=== PATIENT | male | born 1945 | race Hispanic/Latino ===

== ENCOUNTER 2021-02-23 14:36 | Outpatient (CLI) | payer MEDICARE ==
[2021-02-23 16:23] LABS: Anion Gap 14 mmol/L (10-20); BUN (Urea Nitrogen) 14 mg/dL (8.4-25.7); Calc. Creatinine Clearance 0 mL/min (70-130); Carbon Dioxide 26 mmol/L (23-31); Chloride 106 mmol/L (98-107); Glucose 107 mg/dL (83-110); Potassium 4.1 mmol/L (3.5-5.1); Sodium 142 mmol/L (136-145)
[2021-02-23 16:27] LABS: Hemoglobin 13.5 g/dL (13.5-17.5)
== END 2021-02-23 14:37 | disposition home or self-care (01) ==
LOC: LABBT 14:36
PROVIDERS: ATTEND Student in an Organized Health Care Education/Training Program
DX: Z01.818 Encounter for other preprocedural examination (principal); R22.0 Localized swelling, mass and lump, head; J35.1 Hypertrophy of tonsils; R07.0 Pain in throat
CPT/HCPCS: 80048; 85014; 85018

== ENCOUNTER 2021-02-27 06:11 | Observation (INO) | payer MEDICARE ==
[2021-02-27] MEDS ORDERED: Midazolam HCl 2 mg/2 ml Vial ONE (08:08)
[2021-02-27] MEDS ORDERED: EPINEPHrine 1 MG/ML AMP ONE ×3 (08:37→09:34)
[2021-02-27] MEDS ORDERED: Propofol 500 MG/50 ML VIAL ONE ×2 (08:43→08:45)
[2021-02-27] MEDS ORDERED: Fentanyl 100 MCG/2 ML VIAL ONE ×4 (08:44→11:05)
[2021-02-27] MEDS ORDERED: SUGAMMADEX SODIUM 500 MG/5 ML VIAL ONE (08:47)
[2021-02-27] MEDS ORDERED: Ondansetron PF 4 MG/2 ML Vial ONE (08:58)
[2021-02-27] MEDS ORDERED: Rocuronium Bromide 10 MG/ML (10ML VIAL) ONE (08:58)
[2021-02-27] MEDS ORDERED: Lidocaine 1% PF 5 ML VIAL ONE (08:58)
[2021-02-27] MEDS ORDERED: Dexamethasone 20 MG/5 ML VIAL ONE (08:58)
[2021-02-27] MEDS ORDERED: Ketorolac Tromethamine 30 MG/ML VIAL ONE (08:58)
[2021-02-27] MEDS ORDERED: EPINEPHrine 1 MG/10 ML Abboject SYRINGE ONE (09:33)
[2021-02-27] MEDS ORDERED: Ondansetron HCl/PF 4 MG/2 ML Vial IVP PRN (10:13)
[2021-02-27] MEDS ORDERED: Ondansetron PF 4 MG/2 ML Vial IVP PRN (11:14)
[2021-02-27] MEDS ORDERED: HYDROmorphone 2 MG/ML VIAL ONE (11:21)
[2021-02-27 15:41] VITALS: BMI 24.0
[2021-02-27] MEDS: HYDROcodone/Acetaminophen 5/325 mg Tablet PO PRN ×2 (17:29→22:04)
[2021-02-27] MEDS ORDERED: Zolpidem Tartrate 5 MG TAB PO SCH (21:00)
[2021-02-27] MEDS ORDERED: Tamsulosin HCl 0.4 MG CAP PO SCH (21:00)
[2021-02-27] MEDS ORDERED: ALPRAZolam 0.5 MG TAB PO SCH (21:00)
[2021-02-28] MEDS: HYDROcodone/Acetaminophen 5/325 mg Tablet PO PRN ×2 (02:34→08:53)
[2021-02-28 08:22] VITALS: BP 122/64; TEMP 98.1
== END 2021-02-28 11:00 | disposition home or self-care (01) ==
LOC: SDC 06:11 → SURG A 12:59
PROVIDERS: ADMIT Student in an Organized Health Care Education/Training Program; ATTEND Student in an Organized Health Care Education/Training Program
PROC: 0CBS8ZX Excision of Larynx, Via Natural or Artificial Opening Endoscopic, Diagnostic (ICD-10-PCS; principal; 2021-02-27)
DX: C09.9 Malignant neoplasm of tonsil, unspecified (principal); J35.1 Hypertrophy of tonsils; G47.00 Insomnia, unspecified; Z79.899 Other long term (current) drug therapy
CPT/HCPCS: 31536; 88184; 88305; 88341; 88342; G0378 ×2; 88304; J0171; J1100; J1170; J1885; J2250; J2405; J2704; J3010

== ENCOUNTER 2021-03-08 08:04 | Outpatient (CLI) | payer MEDICARE ==
[2021-03-08] MEDS ORDERED: Iopamidol 370 76% 100 ML VIAL ONE (09:24)
== END 2021-03-08 08:05 | disposition home or self-care (01) ==
LOC: CT 08:04
PROVIDERS: ATTEND Student in an Organized Health Care Education/Training Program
DX: C44.92 Squamous cell carcinoma of skin, unspecified (principal); J34.89 Other specified disorders of nose and nasal sinuses; R91.8 Other nonspecific abnormal finding of lung field; J98.4 Other disorders of lung
CPT/HCPCS: 70491; 71260; Q9967

== ENCOUNTER 2021-08-16 11:18 | Outpatient (CLI) | payer MEDICARE | END 2021-08-16 11:19 | disposition home or self-care (01) | LOC: PET 11:18 | PROVIDERS: ATTEND Radiology Radiation Oncology | DX: C09.8 Malignant neoplasm of overlapping sites of tonsil (principal) | CPT/HCPCS: 78815; A9552 ==

== ENCOUNTER 2024-05-30 22:11 | Inpatient (IN) | payer OTHER ==
[2024-05-31] MEDS ORDERED: Ondansetron PF 4 MG/2 ML Vial IVP PRN (01:21)
[2024-05-31] MEDS ORDERED: Ondansetron ODT 4 MG TAB PO PRN (01:21)
[2024-05-31] MEDS: Sodium Chloride 0.9% 1,000 ML IV SCH (02:43)
[2024-05-31] MEDS: Cefepime 2 GM in Sodium Chloride 0.9% 100 ML IVPB SCH (05:32)
[2024-05-31 06:55] LABS: #Basophils Less than 0.03 10x3/uL (0.0-0.2); #Eosinphils Less than 0.03 10x3/uL (0.0-0.7); %Basophils 0.1 % (0.0-1.0); %Lymphocytes 3.5 % (21.0-51.0); %Monocytes 13.9 % (0.0-10.0); %Neutrophils 80.2 % (42.0-75.0); Hematocrit 29.1 % (42.0-52.0); Hemoglobin 9.7 g/dL (14.0-18.0); Mean Corpuscular HGB CONC 33.3 g/dL (32.0-36.0); Mean Corpuscular Hemoglobin 31.6 pg (27.0-31.0); Mean Corpuscular Volume 94.8 fL (78.0-98.0); Platelet Count 102 10x3/uL (130-400); RBC Distribution Width 14.9 % (11.5-14.5); Red Blood Cell (RBC) Count 3.07 mill/uL (4.70-6.10)
[2024-05-31 07:17] LABS: Anion Gap 12 mmol/L (10-20); BUN (Urea Nitrogen) 19 mg/dL (8.4-25.7); Calc. Creatinine Clearance 40 mL/min (70-130); Calcium 8.3 mg/dL (7.8-10.44); Carbon Dioxide 20 mmol/L (23-31); Chloride 110 mmol/L (98-107); Estimated GFR 59; Glucose 104 mg/dL (83-110); Potassium 3.3 mmol/L (3.5-5.1); Sodium 139 mmol/L (136-145)
[2024-05-31] MEDS: Potassium Chloride 20 MEQ in Premix 1 BAG IVPB SCH (09:39)
[2024-05-31] MEDS: Enoxaparin 40 MG (0.4 mL) SYRINGE SC SCH (09:40)
[2024-05-31 12:04] VITALS: BMI 17.1
[2024-05-31] MEDS: Tamsulosin HCl 0.4 MG CAP PO SCH (21:31)
[2024-05-31] MEDS: Zolpidem Tartrate 5 MG TAB PO PRN (21:31)
[2024-05-31] MEDS: Acetaminophen 325 MG TAB PO PRN (21:31)
[2024-06-01 08:03] LABS: #Basophils Less than 0.03 10x3/uL (0.0-0.2); #Eosinphils Less than 0.03 10x3/uL (0.0-0.7); %Lymphocytes 3.6 % (21.0-51.0); %Monocytes 8.6 % (0.0-10.0); %Neutrophils 85.9 % (42.0-75.0); Hematocrit 30.9 % (42.0-52.0); Mean Corpuscular HGB CONC 32.4 g/dL (32.0-36.0); Mean Corpuscular Hemoglobin 31.3 pg (27.0-31.0); Mean Corpuscular Volume 96.6 fL (78.0-98.0); Platelet Count 95 10x3/uL (130-400); RBC Distribution Width 14.8 % (11.5-14.5)
[2024-06-01] MEDS: Dutasteride 0.5 MG CAP PO SCH (08:16)
[2024-06-01 08:19] LABS: Anion Gap 10 mmol/L (10-20); BUN (Urea Nitrogen) 17 mg/dL (8.4-25.7); Calc. Creatinine Clearance 47 mL/min (70-130); Carbon Dioxide 20 mmol/L (23-31); Chloride 112 mmol/L (98-107); Estimated GFR 72; Glucose 83 mg/dL (83-110); Potassium 3.9 mmol/L (3.5-5.1); Sodium 138 mmol/L (136-145)
[2024-06-01] MEDS: Meropenem 2 GM in Sodium Chloride 0.9% 100 ML IVPB SCH (13:23)
[2024-06-02 06:52] LABS: #Basophils Less than 0.03 10x3/uL (0.0-0.2); #Eosinphils Less than 0.03 10x3/uL (0.0-0.7); %Basophils 0.2 % (0.0-1.0); %Lymphocytes 7.8 % (21.0-51.0); %Monocytes 13.2 % (0.0-10.0); %Neutrophils 76.6 % (42.0-75.0); Hemoglobin 9.9 g/dL (14.0-18.0); Mean Corpuscular HGB CONC 31.9 g/dL (32.0-36.0); Mean Corpuscular Hemoglobin 31.5 pg (27.0-31.0); Mean Corpuscular Volume 98.7 fL (78.0-98.0); Mean Platelet Volume 8.9 fL (7.4-10.4); Platelet Count 114 10x3/uL (130-400); RBC Distribution Width 14.6 % (11.5-14.5); Red Blood Cell (RBC) Count 3.14 mill/uL (4.70-6.10)
[2024-06-02 07:56] LABS: Anion Gap 13 mmol/L (10-20); BUN (Urea Nitrogen) 18 mg/dL (8.4-25.7); Calc. Creatinine Clearance 53 mL/min (70-130); Calcium 8.2 mg/dL (7.8-10.44); Carbon Dioxide 20 mmol/L (23-31); Chloride 108 mmol/L (98-107); Estimated GFR 82; Glucose 83 mg/dL (83-110); Potassium 3.4 mmol/L (3.5-5.1); Sodium 138 mmol/L (136-145)
[2024-06-02] MEDS: Potassium Chloride 20 MEQ TAB PO SCH (15:10)
[2024-06-03 05:29] LABS: Anion Gap 10 mmol/L (10-20); BUN (Urea Nitrogen) 19 mg/dL (8.4-25.7); Calc. Creatinine Clearance 46 mL/min (70-130); Calcium 8.1 mg/dL (7.8-10.44); Carbon Dioxide 25 mmol/L (23-31); Chloride 107 mmol/L (98-107); Estimated GFR 70; Glucose 99 mg/dL (83-110); Potassium 3.5 mmol/L (3.5-5.1); Sodium 138 mmol/L (136-145)
[2024-06-03 06:04] LABS: #Basophils Less than 0.03 10x3/uL (0.0-0.2); #Eosinphils Less than 0.03 10x3/uL (0.0-0.7); %Lymphocytes 12.9 % (21.0-51.0); %Monocytes 19.7 % (0.0-10.0); %Neutrophils 64.5 % (42.0-75.0); Hematocrit 31.7 % (42.0-52.0); Hemoglobin 10.2 g/dL (14.0-18.0); Mean Corpuscular HGB CONC 32.2 g/dL (32.0-36.0); Mean Corpuscular Hemoglobin 31.4 pg (27.0-31.0); Mean Corpuscular Volume 97.5 fL (78.0-98.0); Mean Platelet Volume 9.2 fL (7.4-10.4); Platelet Count 122 10x3/uL (130-400); RBC Distribution Width 14.6 % (11.5-14.5); Red Blood Cell (RBC) Count 3.25 mill/uL (4.70-6.10)
[2024-06-04 05:30] VITALS: BMI 16.9
[2024-06-04 06:23] LABS: Hematocrit 31.1 % (42.0-52.0); Hemoglobin 9.9 g/dL (14.0-18.0); Mean Corpuscular HGB CONC 31.8 g/dL (32.0-36.0); Mean Corpuscular Hemoglobin 31.1 pg (27.0-31.0); Mean Corpuscular Volume 97.8 fL (78.0-98.0); Mean Platelet Volume 8.8 fL (7.4-10.4); Platelet Count 115 10x3/uL (130-400); RBC Distribution Width 14.6 % (11.5-14.5); Red Blood Cell (RBC) Count 3.18 mill/uL (4.70-6.10)
[2024-06-04 06:30] LABS: Anion Gap 9 mmol/L (10-20); BUN (Urea Nitrogen) 17 mg/dL (8.4-25.7); Calc. Creatinine Clearance 48 mL/min (70-130); Calcium 8.4 mg/dL (7.8-10.44); Carbon Dioxide 27 mmol/L (23-31); Chloride 107 mmol/L (98-107); Estimated GFR 74; Glucose 92 mg/dL (83-110); Potassium 3.4 mmol/L (3.5-5.1); Sodium 140 mmol/L (136-145)
[2024-06-04 07:29] LABS: Band 3 % (5-11); Lymphocytes 14 % (21-51); Monocytes 14 % (0-10); Neutrophil 66 % (42-75); Platelet Adequacy Comment Platelets Decreased; RBC Morphology Within Normal Limits; Reactive Lymphocytes 3 % (0-10)
[2024-06-04] MEDS: Potassium Chloride 20 MEQ TAB PO SCH (08:57)
[2024-06-04 12:06] LABS: Bacteria/HPF None Seen HPF (None Seen); Bilirubin Negative (Negative); Blood, Urine 1+ (Negative); Clarity Clear (Clear); Glucose, Urine (Dipstick) Normal (Negative); Ketone, Urine 20 mg/dL (Negative); Leukocyte Negative Leu/uL (Negative); Nitrite Negative (Negative); Protein, Urine (Dipstick) 50 mg/dL (Neg-Trace); RBC/HPF 0-3 HPF (0-3); Specific Gravity, Urine 1.018 (1.002-1.036); Squamous Epithelial None Seen HPF (0-3); WBC/HPF 0-3 HPF (0-3); pH, Urine 7.5 (5.0-9.0)
[2024-06-04 13:11] LABS: INR-International Normal Ratio 1.1; Prothrombin Time 14.4 sec (12.0-14.7)
[2024-06-04 13:13] LABS: PTT 49.6 sec (22.9-36.1)
[2024-06-05] MEDS: Zolpidem Tartrate 5 MG TAB PO SCH (23:30)
[2024-06-06] MEDS: Zolpidem Tartrate 5 MG TAB PO PRN (20:19)
[2024-06-07] MEDS: Potassium Chloride 20 MEQ TAB PO SCH (08:31)
[2024-06-07 12:01] VITALS: BP 94/49; TEMP 98.2
== END 2024-06-07 14:46 | disposition home or self-care (01) | DRG 872 ==
LOC: SURG B 23:34
PROVIDERS: ADMIT Student in an Organized Health Care Education/Training Program; ATTEND Internal Medicine
DX: A41.9 Sepsis, unspecified organism (principal); N39.0 Urinary tract infection, site not specified; T83.511A Infection and inflammatory reaction due to indwelling urethral catheter, initial encounter; E44.0 Moderate protein-calorie malnutrition; Z68.1 Body mass index [BMI] 19.9 or less, adult; N45.3 Epididymo-orchitis; N43.3 Hydrocele, unspecified; E87.6 Hypokalemia; N18.9 Chronic kidney disease, unspecified; N40.0 Benign prostatic hyperplasia without lower urinary tract symptoms; F41.9 Anxiety disorder, unspecified; Z98.890 Other specified postprocedural states; Z79.899 Other long term (current) drug therapy; G47.00 Insomnia, unspecified
CPT/HCPCS: 36415; 51702; 71046; 74177; 76870; 80048; 80053; 81001; 83605; 83690; 83735; 84145; 85025; 85610; 85730; 87040; 87077; 87081; 87086; 87149; 87186; 93976; 96374; 96375; J0692; J1650; J2183; J3370; J3480; J7030; Q9967